=== PATIENT | female | born 1970 | race African-American/Black ===

== ENCOUNTER 2024-02-10 14:40 | Emergency (ER) | payer MEDICAID, SELFPAY ==
[2024-02-10 14:42] VITALS: BP 137/80; PULSE 69; RESP 18; TEMP 36.4; O2SAT 97; BMI 30.9
--- NOTE | 2024-02-10 15:00 | XR_ITS ---
Patient: RACHID ROMERO Facility:?[facility] Patient ID:?[id number] Site Patient ID:?[id number] Site :?[id number] Study:?XRay-Extremity Left ANKLE 3 VIEWS-02/10/2024 3:14:47 PM Ordering Physician:WILEY Final Report: Indication: Pain. Technique: Left ankle, 3 views. Comparison: None. Findings/Impression: Bones: Alignment is normal. No displaced fractures or bone lesions. Joint spaces: Unremarkable. Soft tissues: Unremarkable. Dictated by Cheng Love MD @ 02/10/2024 3:56:30 PM Signed by:?Cheng Love MD @02/10/2024 3:56:30 PM (Electronic Signature)
--- NOTE | 2024-02-10 15:00 | ED.GENADULT ---
HPI - General Adult General Chief complaint: Extremity Pain/Injury, Lower Stated complaint: L leg injury Time Seen by Provider: 02/10/24 14:51 History of Present Illness HPI narrative: This 53-year-old female comes in reporting pain in the posterior aspect of her left ankle. She woke up with this pain yesterday and does not describe any particular injury event or excessive strenuous activity. She is able to ambulate but does so with a limp. She states that the pain is worse when dorsiflexing her left ankle joint. Related Data Home Medications Medication Instructions Recorded Confirmed Lantus U-100 Insulin 02/10/24 atorvastatin 40 mg tablet 40 mg PO DAILY 02/10/24 02/10/24 cetirizine 10 mg capsule (All Day 10 mg PO DAILY PRN 02/10/24 02/10/24 Allergy (cetirizine)) sitagliptin phosphate 100 mg 100 mg PO DAILY 02/10/24 02/10/24 tablet (Januvia) Previous Rx's Medication Instructions Recorded ketorolac 10 mg tablet 10 mg PO Q8H 5 days #15 tabs 02/10/24 Allergies Allergy/AdvReac Type Severity Reaction Status Date / Time No Known Drug Allergies Allergy Verified 02/10/24 14:46 Review of Systems Status of ROS: Reports: 10 or more systems reviewed and unremarkable except as noted in History and below Narrative: Constitutional: No fevers, no weight gain or loss. Eyes: No discharge. No vision changes. HENT: No congestion, no sore throat, no ear pain. Cardiovascular: No chest pain, no palpitations. Respiratory: No shortness of breath, no wheezes, no cough. Gastrointestinal: No abdominal pain, no vomiting, no diarrhea. Genitourinary: No dysuria, no hematuria. Musculoskeletal: Normal range of motion. Skin: No rashes, no pruritis. Neurological: No dizziness, weakness, sensory change, speech change. Endo/Heme/Allergies: No bruising or bleeding. No polydipsia. Pysch: no suicidality, no anxiety, no insomnia. All other systems reviewed and are negative. Exam Narrative: Exam Narrative: Constitutional: Well-developed, well-nourished, no acute distress. HEENT: Normocephalic, atraumatic. Neck: Normal range of motion. Nontender. Supple. Heart: Regular. No murmurs. Normal rate. Intact distal pulses. Lungs: Clear to auscultation. No chest discomfort. No wheezes, rhonchi, or rales. Abdomen: Normal bowel sounds. Nontender. No rebound tenderness. Genitalia: Deferred. Back: No midline tenderness. Normal range of motion. Extremities: Normal range of motion. No swelling or bruising and no skin injury. Pain is localized posterior aspect of the ankle and anterior to the Achilles tendon. Her Achilles mechanism is intact. Skin: Intact. No rash. Warm. No erythema or pallor. Neurologic: No altered sensation. No weakness. Alert and oriented. Psychiatric: No suicidality. No anxiety or depression. No insomnia. Nursing notes and vitals signs are reviewed. Const: Vital Signs, click to edit/add: Vital Signs - 24 hr 02/10/24 14:42 Temperature 97.5 F L Pulse Rate [Right Pulse Oximeter] 69 Respiratory Rate 18 Blood Pressure [Ri ght Upper Arm] 137/80 Pulse Oximetry 97 Oxygen Delivery Me thod Room Air Course Vital Signs Vital signs: Initial Vital Signs Temperature 97.5 F L 02/10/24 14:42 Temperature Source Temporal Artery Scan 02/10/24 14:42 Pulse Rate 69 02/10/24 14:42 Respiratory Rate 18 02/10/24 14:42 Blood Pressure 137/80 02/10/24 14:42 Blood Pressure Mean 99 02/10/24 14:42 Blood Pressure Position Sitting 02/10/24 14:42 Pulse Oximetry 97 02/10/24 14:42 Oxygen Delivery Method Room Air 02/10/24 14:42 Vital Signs Temperature 97.5 F L 02/10/24 14:42 Pulse Rate 69 02/10/24 14:42 Respiratory Rate 18 02/10/24 14:42 Blood Pressure 137/80 02/10/24 14:42 Pulse Oximetry 97 02/10/24 14:42 Oxygen Delivery Method Room Air 02/10/24 14:42 Temperature 97.5 F L 02/10/24 14:42 Pulse Rate 69 02/10/24 14:42 Respiratory Rate 18 02/10/24 14:42 Blood Pressure 137/80 02/10/24 14:42 Pulse Oximetry 97 02/10/24 14:42 Oxygen Delivery Method Room Air 02/10/24 14:42 Medical Decision Making [facility] Narrative Medical decision making narrative: This patient comes in complaining of pain in her left ankle as described above. She does not report a specific injury event but now does remember that she was upset with 1 of her children and did stump her foot rather hard and the pain began soon after that. She is ambulatory. An x-ray is obtained and shows no acute findings by my review. Radiology report is pending. The patient is okay to be discharged home and did receive a prescription for Toradol. Discharge Plan Discharge Clinical Impression: Contusion of foot, left Patient Disposition: Home, Self-Care Condition: Stable Additional Instructions: Take medication as needed and directed. Increase activity as tolerated. Follow up with MD return if worsening. Prescriptions: New ketorolac 10 mg tablet 10 mg PO Q8H 5 Days Qty: 15 0RF No Action Lantus U-100 Insulin Januvia 100 mg tablet 100 mg PO DAILY All Day Allergy (cetirizine) 10 mg capsule 10 mg PO DAILY PRN atorvastatin 40 mg tablet 40 mg PO DAILY Stand Alone Forms: [employer] Info Instructions
== END 2024-02-10 15:52 | disposition home or self-care (01) ==
PROVIDERS: Emergency Provider Emergency Medicine Emergency Medical Services
DX: S90.32XA Contusion of left foot, initial encounter (principal)
CPT/HCPCS: 73610; 99283; 99284